=== PATIENT | female | born 1980 | race Caucasian/White ===

== ENCOUNTER 2020-04-29 08:30 | Emergency (ER) | payer BC, SELFPAY ==
[2020-04-29 08:38] VITALS: BP 131/62; PULSE 97; RESP 16; TEMP 37.1; O2SAT 97; BMI 31.1
--- NOTE | 2020-04-29 08:46 | XR_ITS ---
EXAMINATION: XR SHOULDER, LEFT CLINICAL INFORMATION: Shoulder pain COMPARISON: None TECHNIQUE: Two views of the left shoulder. FINDINGS: No visible acute fracture or dislocation. Mild AC joint arthritis. Relative rounded lucency in the region of the greater tuberosity, may reflect cystic changes. No abnormal soft tissue calcification. Visualized left lung is clear. IMPRESSION: No evidence of acute osseous abnormality. Rounded lucency in the greater trochanter, may reflect cystic changes. Mild AC joint arthritis.
--- NOTE | 2020-04-29 08:49 | ED_ITS ---
HPI - Extremity Problem General Chief complaint: Extremity Injury, Upper Stated complaint: l shoulder inj fall Time Seen by Provider: 04/29/20 08:45 Source: patient Mode of arrival: ambulatory Limitations: no limitations History of Present Illness HPI Narrative: Patient presents to ED for left-sided shoulder pain after falling last night. Patient states she slipped on her wet patio last night while trying to give the cat food. patient states she fell right onto left shoulder. Patient denies hitting head, loss of consciousness, injury to neck, or any other complaints. Patient states since the fall she denies any headache, dizziness, chest pain, shortness of breath, abdominal pain, vomiting blood, rectal bleeding, flank pain, or bloody urine. MD Complaint: extremity pain Location: left and upper extremity Related Data Previous Rx's Medication Instructions Recorded cyclobenzaprine 10 mg PO TID PRN #15 tab 04/29/20 naproxen 500 mg PO BID PRN #20 tab 04/29/20 Allergies Allergy/AdvReac Type Severity Reaction Status Date / Time No Known Allergies Allergy Verified 04/29/20 08:42 Review of Systems Review of Systems: Yes all other systems are reviewed and are negative Constitutional: Constitutional: Reports as per HPI and Reports no additional constitutional complaints Eyes: Eyes: Reports as per HPI and Reports no additional eye complaints ENT: Reports system reviewed and no additional complaints, except as documented and Reports as per HPI Cardiovascular: Cardiovascular: Reports as per HPI and Reports no additional cardiovascular complaints Respiratory: Respiratory: Reports as per HPI and Reports no additional respiratory complaints Gastrointestinal: Gastrointestinal: Reports as per HPI and Reports no additional gastrointestinal complaints Musculoskeletal: Musculoskeletal: Reports no additional musculoskeletal complaints Comments: Left shoulder pain Neurologic: Reports system reviewed and no additional complaints, except as documented and Reports as per HPI Psychiatric: Psychiatric: Reports no additional psychiatric complaints and Reports as per HPI PMFSH Past Medical History Medical History (Updated 04/29/20 @ 09:37 by MIRI Bernarod) High blood pressure Hyperlipidemia Surgical History (Updated 04/29/20 @ 08:41 by Melissa Urbina RN) History of appendectomy Social History Social History Advance Directives: No Advance Directives Information Provided: No Physical Exam Vital Signs: Vital Signs: Vital Signs Temp Pulse Resp BP Pulse Ox 04/29/20 08:38 98.7 F 97 16 131/62 97 Body Mass Index 31.1 Const: General: cooperative, healthy appearing, comfortable and no acute distress Orientation/consciousness: oriented to person, oriented to place, oriented to time and patient oriented x3 HENMT: Head: Yes normal to inspection, Yes No palpable skull fracture present, No Putnam's sign, No contusion, No hematoma, No laceration, No palpable skull fracture, No raccoon eyes, No scalp lesion and No scalp tenderness Eyes: General: appearance normal, both eyes and all related structures Neck: Neck: Yes normal visual inspection, Yes full ROM, Yes no lymphadenopathy, Yes no meningeal signs, No trachea midline, No anterior neck swelling, No positive Brudzinski's sign, No positive Kernig's sign and No tender Chest: Chest palpation & inspection: normal inspection of the chest, normal palpation of entire chest wall and no localized rib tenderness Resp: Effort & Inspection: normal respiratory effort, able to speak in complete sentences, normal respiratory pattern, no audible wheezes, no cough, respiratory effort not decreased, no grunting, not labored and no nasal flaring Cardio: Jugular venous distension: no JVD Rhythm: regular rhythm Heart sounds: S1 normal heart sound present and S2 normal heart sound present GI: Inspection: Yes normal to inspection, No abdominal wall ecchymosis, No Abdominal wall edema, No distended, No incision and No Abdominal panniculus present Palpation (GI): Soft to palpation, not firm, nontender, no guarding, not rigid, no hernias and no masses Percussion: Yes normal to percussion Auscultation: normal bowel sounds : General: No CVA tenderness and Yes no CVA tenderness Back/Spine/Pelvis: Back: no CVA tenderness, No CVA tenderness and No back tenderness Cervical Spine: normal cervical lordosis and cervical ROM normal Skin: General skin exam: no rashes or lesions noted Neuro: General: oriented to person, oriented to place, oriented to time, patient oriented x3, gait normal, no meningeal signs and CN's II-XI intact bilaterally Cranial nerves: Yes CN's II-XII intact bilaterally Extrem: Other: positive for left anterior shoulder pain on palpation. Patient able to elevate shoulder. Vascular neuro exam is intact, motor exam is intact. . Unlikely shoulder is dislocated. Left upper extremity: normal to inspection and shoulder/upper arm ( Anterior shoulder tenderness on palpation.) Details: tenderness Psych: Appearance: grossly normal and well kempt Course Course Course Narrative: Very unlikely patient has shoulder dislocation. Patient will be sent for x-ray to rule out fracture Reevaluation(s) Reevaluation #1: Patient's x-ray negative for fracture or dislocation. Patient will be discharged with NSAIDs and muscle relaxer. Patient informed to follow with PCP for further evaluation / possible MRI if pain does not improve. Time: 09:33 MDM - Extremity (Nontraumatic) MDM Narrative Medical decision making narrative: Diagnosis is left shoulder contusion /sprain Discharge Plan Discharge Clinical Impression: Contusion of left shoulder, initial encounter Sprain of left shoulder Qualifiers: Encounter type: initial encounter Patient Disposition: Home, Self-Care Instructions: Contusion in Adults (ED), Shoulder Sprain (ED) Additional Instructions: return to the ED immediately for headache, dizziness, swelling of left upper extremity, redness of left upper extremity, bluish discoloration of fingers, chest pain, shortness of breath, vomiting blood, rectal bleeding, or any other concerning symptoms. Prescriptions: New naproxen 500 mg tablet 500 mg PO BID PRN (Reason: pain) Qty: 20 RF: 0 cyclobenzaprine 10 mg tablet 10 mg PO TID PRN (Reason: muscle spasm) Qty: 15 RF: 0 Referrals: Tremayne Gomez MD [Primary Care Provider] - 2 days (Left shoulder c ontusion/sprain. If no improvement in pain. recommend MRI) Stand Alone Forms: Work/School Release Interventions: ED Discharge Assessment Last Done: 04/29/20 09:53 Discharge Date/Time: 04/29/20 09:53 Print Language: [place]
[2020-04-29] MEDS: Ketorolac Tromethamine 30 MG/ML VIAL IM (09:02)
== END 2020-04-29 09:53 | disposition home or self-care (01) ==
PROVIDERS: Emergency Provider Emergency Medicine; PCP Internal Medicine
DX: S40.012A Contusion of left shoulder, initial encounter (principal); S43.402A Unspecified sprain of left shoulder joint, initial encounter; W01.0XXA Fall on same level from slipping, tripping and stumbling without subsequent striking against object, initial encounter; I10 Essential (primary) hypertension; Y93.89 Activity, other specified; Y92.018 Other place in single-family (private) house as the place of occurrence of the external cause; Y99.9 Unspecified external cause status
CPT/HCPCS: 73030; 96372; 99283; 99284; J1885